=== PATIENT | female | born 2005 | race Caucasian/White ===

== ENCOUNTER 2024-07-03 11:41 | Emergency (ER) | payer SELFPAY | END 2024-07-03 12:55 | disposition home or self-care (01) | LOC: NAV ERS 11:41 | DX: S40.021A Contusion of right upper arm, initial encounter (principal); X50.1XXA Overexertion from prolonged static or awkward postures, initial encounter | CPT/HCPCS: 99283 ==

== ENCOUNTER 2025-09-09 18:06 | Emergency (ER) | payer SELFPAY ==
[2025-09-09] MEDS ORDERED: Acetaminophen 325 MG TAB ONE (19:16)
== END 2025-09-09 19:25 | disposition home or self-care (01) ==
LOC: NAV ERS 18:06
DX: K04.4 Acute apical periodontitis of pulpal origin (principal)
CPT/HCPCS: 99282